=== PATIENT | male | born 1975 | race Caucasian/White ===

== ENCOUNTER 2018-09-29 10:41 | Emergency (ER) | payer SELFPAY ==
[~2018-09-29] VITALS: Ht 162.6 cm; Wt 73.0 kg
[2018-09-29] MEDS ORDERED: IBUPROFEN 600MG TABLET PO ONE (12:45)
[2018-09-29 12:51] VITALS: BP 130/96
== END 2018-09-29 14:06 | disposition home or self-care (01) ==
LOC: ER 10:41
DX: M25.512 Pain in left shoulder (principal); Z88.0 Allergy status to penicillin; Y04.0XXA Assault by unarmed brawl or fight, initial encounter; Y93.89 Activity, other specified; Y92.89 Other specified places as the place of occurrence of the external cause; Y99.8 Other external cause status
CPT/HCPCS: 73030; 99283